=== PATIENT | female | born 1995 | race American Indian/Alaskan Native ===

== ENCOUNTER 2020-06-08 20:51 | Emergency (ER) | payer SELFPAY ==
[2020-06-08 22:36] VITALS: BP 133/91
== END 2020-06-08 23:00 | disposition left against medical advice (07) ==
LOC: ED 20:51
DX: Z00.8 Encounter for other general examination (principal); Z53.21 Procedure and treatment not carried out due to patient leaving prior to being seen by health care provider

== ENCOUNTER 2021-01-28 16:41 | Emergency (ER) | payer OTHER ==
[2021-01-28 17:25] VITALS: BP 121/77
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
== END 2021-01-28 18:56 | disposition home or self-care (01) ==
LOC: ED 16:41
DX: M54.2 Cervicalgia (principal); V49.49XA Driver injured in collision with other motor vehicles in traffic accident, initial encounter; Y93.89 Activity, other specified; Y92.89 Other specified places as the place of occurrence of the external cause; Y99.8 Other external cause status
CPT/HCPCS: 99282